=== PATIENT | male | born 1945 | race Caucasian/White ===

== ENCOUNTER 2017-06-13 22:49 | Emergency (ER) | payer OTHER ==
[~2017-06-13] VITALS: Ht 167.6 cm; Wt 63.0 kg
[~2017-06-13 22:49] MED LIST: AFEDITAB CR30 MG; ASA325 MG; AVODART0.5 MG; COREG CR20 MG; GLUMETZA1000 MG; HYDRALAZINE HCL50 MG; LIPITOR40 MG; LOSARTAN-HCTZ1 EAC1; PLAVIX75 MG; SYMBICORT 16010.2 GM; TAMS0.4C
== END 2017-06-14 05:30 | disposition home or self-care (01) ==
LOC: ER 22:49
DX: I10 Essential (primary) hypertension (principal)

== ENCOUNTER 2017-07-12 06:27 | Outpatient (CLI) | payer OTHER | END 2017-07-12 07:35 | disposition home or self-care (01) | LOC: LAB 06:27 | DX: D64.89 Other specified anemias (principal); R10.84 Generalized abdominal pain; E78.4 Other hyperlipidemia; R80.8 Other proteinuria; E11.9 Type 2 diabetes mellitus without complications; R73.09 Other abnormal glucose ==

== ENCOUNTER 2017-07-12 07:01 | Outpatient (CLI) | payer OTHER | END 2017-07-12 07:08 | disposition home or self-care (01) | LOC: SONOGRAMA 07:01 | DX: E04.1 Nontoxic single thyroid nodule (principal) ==

== ENCOUNTER 2017-08-04 06:53 | Outpatient (CLI) | payer OTHER | END 2017-08-04 09:23 | disposition home or self-care (01) | LOC: SONOGRAMA 06:53 | DX: E04.1 Nontoxic single thyroid nodule (principal) ==